=== PATIENT | female | born 1995 | race Caucasian/White ===

== ENCOUNTER 2018-01-17 10:02 | Inpatient (IN) | payer OTHER ==
[~2018-01-17] VITALS: Ht 152.4 cm; Wt 72.1 kg
[2018-01-17] MEDS ORDERED: RINGERS SOLUTION,LACTATED 1,000 ML IV PRN (10:17)
[2018-01-17] MEDS ORDERED: OXYTOCIN 30 UNITS/LACT RINGERS 500 ML IV ONE (10:17)
[2018-01-17] MEDS ORDERED: CITRIC ACID/SODIUM CITRATE 30 ML SOLUTION UDCUP PO PRN (10:30)
[2018-01-17] MEDS ORDERED: METOCLOPRAMIDE HCL 5 MG/ML 2 ML VIAL IVP PRN (10:30)
[2018-01-17 10:38] VITALS: BP 107/60
[2018-01-17 10:50] LABS: BASOPHILS % (AUTO) 0.4 % (0.0-2.0); EOSINOPHILS % (AUTO) 0.9 % (1.0-6.0); HEMATOCRIT 31.6 % (36-46); HEMOGLOBIN 10.7 g/dL (12.0-16.0); LYMPHOCYTES # (AUTO) 2.1 K/uL (1.0-4.8); LYMPHOCYTES % (AUTO) 21.3 % (22.0-44.0); MEAN CORPUSCULAR HEMOGLOBIN 29.3 pg (26.0-34.0); MEAN CORPUSCULAR VOLUME 86 fL (80-100); MONOCYTES # (AUTO) 0.6 K/uL (0.1-1.0); MONOCYTES % (AUTO) 6.3 % (2.0-9.0); NEUTROPHILS # (AUTO) 6.9 K/uL (1.8-7.7); NEUTROPHILS % (AUTO) 71.1 % (40.0-70.0); PLATELET COUNT (AUTO)-OB 286 K/uL (150-450); RED BLOOD CELL COUNT(AUTO) 3.66 MIL/uL (4.00-5.20); RED CELL DISTRIBUTION WIDTH 13.4 % (11.5-14.5)
[2018-01-17] MEDS: RINGERS SOLUTION,LACTATED 1,000 ML IV SCH ×2 (11:20→18:14)
[2018-01-17] MEDS ORDERED: DINOPROSTONE 10 MG VAGINAL SUPPOSITORY VG ONE (11:30)
[2018-01-17] MEDS: FentaNYL CITRATE-PF 100 MCG/2 ML VIAL IVP PRN ×4 (20:51→22:55)
[2018-01-18] MEDS: RINGERS SOLUTION,LACTATED 1,000 ML IV SCH ×3 (00:56→12:04)
[2018-01-18] MEDS ORDERED: MISOPROSTOL 25 MCG TABLET VG ONE (03:00)
[2018-01-18] MEDS ORDERED: OXYTOCIN 30 UNITS/LACT RINGERS 500 ML IV PRN (05:04)
[2018-01-18] MEDS: FentaNYL CITRATE-PF 100 MCG/2 ML VIAL IVP PRN ×2 (07:39→10:23)
[2018-01-18] MEDS ORDERED: MISOPROSTOL 25 MCG TABLET VG SCH (08:15)
[2018-01-18] MEDS ORDERED: ROPIVACAINE HCL/PF 0.2% 100 ML ED ONE (11:52)
[2018-01-18] MEDS ORDERED: DiphenhydrAMINE HCL 50 MG/ML VIAL IVP PRN ×2 (13:00→18:00)
[2018-01-18] MEDS ORDERED: BUPIVACAINE HCL/PF 0.5% 25 ML, FentaNYL CITRATE PF 200 MCG in BUPIVACAINE HCL 0.125%/NS... ED PRN (13:00)
[2018-01-18] MEDS ORDERED: ONDANSETRON HCL 4 MG/2 ML VIAL IVP PRN ×2 (13:00→18:00)
[2018-01-18] MEDS ORDERED: MIDAZOLAM HCL 2 MG/2 ML VIAL ONE (17:08)
[2018-01-18] MEDS ORDERED: FentaNYL CITRATE-PF 100 MCG/2 ML VIAL ONE (17:08)
[2018-01-18] MEDS ORDERED: MORPHINE SULFATE/PF 1 MG/ML 10 ML AMP ONE (17:08)
[2018-01-18] MEDS ORDERED: CITRIC ACID/SODIUM CITRATE 30 ML SOLUTION UDCUP PO ONE (17:15)
[2018-01-18] MEDS ORDERED: METOCLOPRAMIDE HCL 5 MG/ML 2 ML VIAL IVP ONE (17:15)
[2018-01-18] MEDS ORDERED: MEPERIDINE-PF 25 MG/ML SYRINGE IVP PRN (18:00)
[2018-01-18] MEDS ORDERED: NALOXONE HCL 0.4 MG/ML VIAL IVP PRN (18:00)
[2018-01-18] MEDS ORDERED: HYDROmorphone 2 MG/ML SYRINGE IVP PRN (18:00)
[2018-01-18] MEDS ORDERED: FentaNYL CITRATE-PF 100 MCG/2 ML VIAL IVP PRN ×2 (18:00)
[2018-01-18] MEDS ORDERED: ACETAMINOPHEN/CODEINE 300-30 MG TABLET PO PRN (18:15)
[2018-01-18] MEDS ORDERED: LANOLIN 7 GM OINTMENT TP PRN (18:15)
[2018-01-18] MEDS ORDERED: METHYLERGONOVINE MALEATE 0.2 MG/ML VIAL ONE (19:13)
[2018-01-18] MEDS ORDERED: OXYGEN THERAPY IH SCH ×2 (20:00)
[2018-01-18] MEDS: OXYGEN THERAPY IH SCH ×2 (20:48→21:53)
[2018-01-18] MEDS: DEXTROSE 5%-0.45% SODIUM CHL 1,000 ML IV SCH (20:48)
[2018-01-18] MEDS: MAGNESIUM HYDROXIDE SUSPENSION 30 ML UDCUP PO SCH (21:00)
[2018-01-19] MEDS: OXYGEN THERAPY IH SCH (00:56)
[2018-01-19] MEDS: DEXTROSE 5%-0.45% SODIUM CHL 1,000 ML IV SCH ×3 (00:56→08:54)
[2018-01-19] MEDS ORDERED: DEXAMETHASONE SOD PHOS 4 MG/ML VIAL IVP ONE (04:15)
[2018-01-19] MEDS ORDERED: METOCLOPRAMIDE HCL 5 MG/ML 2 ML VIAL IVP ONE (04:15)
[2018-01-19] MEDS ORDERED: ONDANSETRON HCL 4 MG/2 ML VIAL IVP ONE (04:15)
[2018-01-19] MEDS ORDERED: KETOROLAC TROMETHAMINE 60 MG/2 ML VIAL IM ONE (04:15)
[2018-01-19] MEDS ORDERED: PROPOFOL 1% 20 ML VIAL IVP ONE (04:15)
[2018-01-19] MEDS ORDERED: LIDOCAINE HCL/PF 2% 5 ML VIAL IM ONE (04:15)
[2018-01-19] MEDS ORDERED: DEXTROSE 5%-0.45% SODIUM CHL 1,000 ML IV ONE (08:51)
[2018-01-19] MEDS: IBUPROFEN 800 MG TABLET PO SCH ×2 (11:49→18:21)
[2018-01-19] MEDS: ACETAMINOPHEN/CODEINE 300-30 MG TABLET PO PRN (16:19)
[2018-01-19] MEDS: MAGNESIUM HYDROXIDE SUSPENSION 30 ML UDCUP PO SCH (21:04)
[2018-01-20] MEDS: IBUPROFEN 800 MG TABLET PO SCH ×5 (00:05→23:56)
[2018-01-20] MEDS: MAGNESIUM HYDROXIDE SUSPENSION 30 ML UDCUP PO SCH ×2 (08:42→21:00)
[2018-01-20] MEDS: ACETAMINOPHEN/CODEINE 300-30 MG TABLET PO PRN (23:57)
[2018-01-21] MEDS: IBUPROFEN 800 MG TABLET PO SCH ×2 (05:58→12:55)
[2018-01-21] MEDS ORDERED: IBUP-2071 PO (08:35)
[2018-01-21] MEDS ORDERED: FERR-89 PO (08:35)
[2018-01-21] MEDS ORDERED: PERCT PO (08:35)
[2018-01-21] MEDS ORDERED: DSS100 PO (08:35)
[2018-01-21] MEDS: ACETAMINOPHEN/CODEINE 300-30 MG TABLET PO PRN ×2 (08:47→12:55)
[2018-01-21] MEDS: MAGNESIUM HYDROXIDE SUSPENSION 30 ML UDCUP PO SCH (08:54)
== END 2018-01-21 14:00 | disposition home or self-care (01) | DRG 766 ==
LOC: OBSVTOIN 10:02 → 4S 10:02
PROVIDERS: ADMIT Obstetrics & Gynecology; ATTEND Obstetrics & Gynecology
PROC: 10D00Z1 Extraction of Products of Conception, Low, Open Approach (ICD-10-PCS; principal; 2018-01-18)
PROC: 3E033VJ Introduction of Other Hormone into Peripheral Vein, Percutaneous Approach (ICD-10-PCS; 2018-01-18)
DX: O41.03X0 Oligohydramnios, third trimester, not applicable or unspecified (principal); O61.9 Failed induction of labor, unspecified; Z37.0 Single live birth; O62.0 Primary inadequate contractions; Z3A.40 40 weeks gestation of pregnancy; Z88.8 Allergy status to other drugs, medicaments and biological substances
CPT/HCPCS: J0690; J1100; J1885; J2210; J2250; J2405; J2590; J2704; J2765; J2795; J3010; J3490; J7120